=== PATIENT | female | born 1980 | race Caucasian/White ===

== ENCOUNTER 2017-08-05 20:43 | Outpatient (CLI) | payer OTHER | END 2017-08-05 20:44 | disposition critical access hospital (66) | LOC: EMS 20:43 | PROVIDERS: ATTEND Surgery | DX: S99.911A Unspecified injury of right ankle, initial encounter (principal); X58.XXXA Exposure to other specified factors, initial encounter; Y93.51 Activity, roller skating (inline) and skateboarding; Y92.414 Local residential or business street as the place of occurrence of the external cause | CPT/HCPCS: A0425; A0427 ==

== ENCOUNTER 2017-08-05 21:03 | Emergency (ER) | payer OTHER ==
--- NOTE | 2017-08-05 21:04 | ED Physician Documentation ---
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 No: Weakness, Numbness Contributing factors: No: Anticoagulated, Prior ortho surgery, Prosthetic joint Similar symptoms before: Has not had sx before Recently seen: Not recently seen - Additional information Additional information: while skateboarding tonight, patient fell and sustained isolated right ankle injury. Denies any other injury. Denies LOC, denies head injury. BIBA, given 100 micrograms fentanyl en route Review of Systems Cardiac: reports: Reviewed and negative Respiratory: reports: Reviewed and negative GI: reports: Reviewed and negative : denies: Now EGA Skin: reports: Laceration (s) (right ankle) Musculoskeletal: reports: Joint pain (right ankle), Joint swelling (right ankle) . denies: Neck pain, Back pain Neurologic: denies: Focal weakness, Numbness, Altered mental status, Headache, Head injury, LOC PD PAST MEDICAL HISTORY - Past Medical History Past Medical History: No - Past Surgical History Past Surgical History: No - Allergies Allergies/Adverse Reactions: Allergies Allergy/AdvReac Type Severity Reaction Status Date / Time No Known Drug Allergies Allergy Verified 08/05/17 21:16 - Living Situation Living Arrangement: reports: At home - Social History Does the pt smoke?: No PD ED PE NORMAL - Vitals Vital signs reviewed: Yes - General General: Alert and oriented X 3, No acute distress (mostly NAD with episodic obvious painful distress), Well developed/nourished - HEENT HEENT: Atraumatic, PERRL, EOMI - Neck Neck: No bony TTP - Cardiac Cardiac: RRR, No murmur - Respiratory Respiratory: No respiratory distress, Clear bilaterally - Abdomen Abdomen: Soft, Non tender - Derm Derm: Normal color, Warm and dry - Neuro Neuro: Alert and oriented X 3, 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, No sensory deficit Eye Opening: Spontaneous Motor: Obeys Commands Verbal: Oriented GCS Score: 15 PD ED PE EXPANDED - Extremities Extremities: Deformity, Tenderness, Limited ROM, Swelling, Right ankle, Pedal Pulses Present (strong right dorsalis pedis pulse with brisk capillary refill and LTS intact in toes), Other (2 cm crescentic laceration to lateral aspect of right ankle with active bleeding (not pulsatile) and fat extrusion) Results - Vitals Vitals: Vital Signs - 24 hr 08/05/17 08/05/17 08/05/17 21:12 22:27 23:52 Temperature 36.3 C L Heart Rate 74 93 99 Respiratory 18 16 17 Rate Blood Pressure 128/82 H 128/78 O2 Saturation 99 99 96 08/06/17 08/06/17 08/06/17 00:20 01:41 01:57 Temperature 37 C 36.8 C Heart Rate 91 91 97 Respiratory 16 16 16 Rate Blood Pressure 122/83 H 136/79 H 125/75 O2 Saturation 99 95 98 Oxygen O2 Source Room air - Labs Labs: Laboratory Tests 08/05/17 08/05/17 23:35 23:35 WBC 8.6 RBC 4.45 Hgb 13.4 Hct 39.2 MCV 88.1 MCH 30.0 MCHC 34.1 RDW 12.6 Plt Count 204 MPV 9.0 Neut # 6.0 Lymph # 2.1 Morgan # 0.4 Eos # 0.0 Baso # 0.1 Absolute Nucleated RBC 0.00 Nucleated RBC % 0.0 Sodium 140 Potassium 3.5 Chloride 106 Carbon Dioxide 25 Anion Gap 9.0 BUN 6 Creatinine 0.6 Estimated GFR (MDRD) 113 Glucose 91 Calcium 9.2 - Rads (name of study) right ankle xrays Radiology: Prelim report reviewed, See rad report PD MEDICAL DECISION MAKING - ED course Complexity details: reviewed results, re-evaluated patient, considered differential, d/w patient ED course: Dr. Romero (on-call orthopedic surgery) consulted; he then came to ED and evaluated patient, reviewed xrays. His recommendation is transfer to [facility] [place] due to the complexity of the injury and anticipated repair. I then d/w Dr. Godfrey (ED MD at [facility] [place]), accepts transfer, recommends IV ceftriaxone (which I then ordered and was given in ED). Of note, patient required multiple dressing changes during ED stay due to bleeding, and she also required repeated doses of narcotic pain medication due to recurrent pain. Departure - Departure Disposition: 02 Transfer Acute Care Hosp Clinical Impression: Open fracture of right ankle Qualifiers: Encounter type: initial encounter Open fracture type: open type I or II Qualified Code(s): S82.891B - Other fracture of right lower leg, initial encounter for open fracture type I or II Condition: Good Discharge Date/Time: 08/06/17 02:00
[2017-08-05] MEDS ORDERED: fentaNYL 100 MCG/2 ML VIAL IVP STA (21:14)
--- NOTE | 2017-08-05 21:50 | XRAY Report ---
EXAM: RIGHT ANKLE RADIOGRAPHY EXAM DATE: 08/05/2017 09:22 PM. CLINICAL HISTORY: Skateboard crash. Fall. Injury. Pain. COMPARISON: None. TECHNIQUE: 3 views. FINDINGS: Bones: Displaced transverse fracture of the lateral malleolus, sagittal fracture of the medial malleo иван, and coronal fractures through the talus. Joints: The tibia and fibula are shifted slightly lateral in relation to the talus. Soft Tissues: Associated soft tissue swelling. IMPRESSION: Fractures of the medial and lateral malleoli and talus, with shift of the tibia and fibul a laterally in relation to the talus. [facility] Referring Provider Line: [phone] SITE ID: [id number]
[2017-08-05] MEDS ORDERED: HYDROmorphone 2 MG/ML VIAL IVP STA ×2 (22:08→23:39)
[2017-08-05 23:43] LABS: BASOPHILS # (AUTO) 0.1 10^3/uL (0.0-0.1); BASOPHILS % (AUTO) 0.8 %; EOSINOPHILS % (AUTO) 0.4 %; HGB - HEMOGLOBIN 13.4 g/dL (12.0-16.0); LYMPHOCYTES # (AUTO) 2.1 10^3/uL (1.5-3.5); LYMPHOCYTES % (AUTO) 24.4 %; MEAN CORPUSCULAR HGB CONC 34.1 g/dL (32.0-36.0); MEAN CORPUSCULAR VOLUME 88.1 fL (81.0-99.0); MONOCYTES # (AUTO) 0.4 10^3/uL (0.0-1.0); MONOCYTES % (AUTO) 4.6 %; NEUTROPHILS % (AUTO) 69.8 %; PLT - PLATELET COUNT 204 10^3/uL (130-450); RED BLOOD COUNT 4.45 10^6/uL (4.20-5.40); RED CELL DISTRIBUTION WIDTH 12.6 % (12.0-15.0); WHITE BLOOD COUNT 8.6 x10^3/uL (4.8-10.8)
[2017-08-05 23:53] LABS: CALCIUM 9.2 mg/dL (8.5-10.3); CREATININE 0.6 mg/dL (0.4-1.0)
[2017-08-06] MEDS ORDERED: HYDROmorphone 2 MG/ML VIAL IVP STA ×2 (00:45→01:48)
--- NOTE | 2017-08-06 00:49 | PROVIDER PROGRESS NOTE ---
Subjective - Prog Note Date Prog Note Date: 08/06/17 Prog Note Time: 00:43 - Subjective Pt reports feeling: Worse (Patient STHH a fall off her long board this evening, sustaining an open right ankle and talus fractures. No LOC or other injuries. No prior ankle fracture) Objective - Vital Signs/Intake & Output Vital Signs: Vital Signs x48h Temp Pulse Resp BP Pulse Ox 08/06/17 00:20 91 16 122/83 H 99 08/05/17 23:52 99 17 128/78 96 08/05/17 22:27 93 16 99 08/05/17 21:12 36.3 C L 74 18 128/82 H 99 - Lab Results Fish Bones: 08/05/17 23:35 08/05/17 23:35 Other Labs: Lab Results x24hrs 08/05/17 08/05/17 Range/Units 23:35 23:35 WBC 8.6 (4.8-10.8) x10^3/uL RBC 4.45 (4.20-5.40) 10^6/uL Hgb 13.4 (12.0-16.0) g/dL Hct 39.2 (37.0-47.0) % MCV 88.1 (81.0-99.0) fL MCH 30.0 (27.0-31.0) pg MCHC 34.1 (32.0-36.0) g/dL RDW 12.6 (12.0-15.0) % Plt Count 204 (130-450) 10^3/uL MPV 9.0 (7.9-10.8) fL Neut # 6.0 (1.5-6.6) 10^3/uL Lymph # 2.1 (1.5-3.5) 10^3/uL [place] # 0.4 (0.0-1.0) 10^3/uL Eos # 0.0 (0.0-0.7) 10^3/uL Baso # 0.1 (0.0-0.1) 10^3/uL Absolute Nucleated RBC 0.00 x10^3/uL Nucleated RBC % 0.0 /100WBC Sodium 140 (135-145) mmol/L Potassium 3.5 (3.5-5.0) mmol/L Chloride 106 (101-111) mmol/L Carbon Dioxide 25 (21-32) mmol/L Anion Gap 9.0 (6-13) BUN 6 (6-20) mg/dL Creatinine 0.6 (0.4-1.0) mg/dL Estimated GFR (MDRD) 113 (>89) Glucose 91 (70-100) mg/dL Calcium 9.2 (8.5-10.3) mg/dL - Diagnostic Imaging Diagnostic Imaging Comments: XR show a displaced right bimalleolar ankle fracture along with minimally displaced coronal plane talar body fracture - Other Results/Comments Other Results/Comments: EXAM: Right ankle: one cm wound over anterolateral ankle. Mild gross deformity of ankle. Moves toes ok. Sensation intact. Good cap filling Assessment/Plan - Problem List (1) Open fracture of right ankle Impression: Open fracture with some displacement and with assosciated talar body fracture PLAN: After discussion of treatment options, she is in favor of ORIF of fractures. 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 After further discussion of options, she wishes to be transferred to [facility] for her fracture treatment in view of the increased complxity of the fracture due to the talar body fracture component. If [facility] can accept in transfer, will apply betadine dressing to wound, give a dose of antibiotics, splint ankle, and transport to [facility] for definitive treatment of her open fractures. Qualifiers: Encounter type: initial encounter Open fracture type: open type I or II Qualified Code(s): S82.891B - Other fracture of right lower leg, initial encounter for open fracture type I or II
[2017-08-06] MEDS ORDERED: cefTRIAXone 1 GM in SODIUM CHLORIDE 0.9% MINIBAG 100 ML IV STA (01:09)
[2017-08-06] MEDS ORDERED: SODIUM CHLORIDE 0.9% 1,000 ML IV STA (01:21)
[2017-08-06] MEDS ORDERED: diphenhydrAMINE INJ 50 MG/ML VIAL IVP STA (01:48)
[2017-08-06] MEDS ORDERED: ONDANSETRON 4 MG/2 ML VIAL IVP STA (01:48)
[2017-08-06 01:57] VITALS: BP 125/75
== END 2017-08-06 02:00 | disposition short-term general hospital (02) ==
LOC: EDUNIT# → ED 21:03
DX: S82.891B Other fracture of right lower leg, initial encounter for open fracture type I or II (principal); V00.131A Fall from skateboard, initial encounter; Y93.51 Activity, roller skating (inline) and skateboarding
CPT/HCPCS: 36415; 73610; 80048; 85025; 96365; 96375; 96376; 99284; J1170; J1200

== ENCOUNTER 2017-08-06 02:11 | Outpatient (CLI) | payer OTHER | END 2017-08-06 02:12 | disposition short-term general hospital (02) | LOC: EMS 02:11 | PROVIDERS: ATTEND Surgery | DX: S82.841B Displaced bimalleolar fracture of right lower leg, initial encounter for open fracture type I or II (principal); S92.101B Unspecified fracture of right talus, initial encounter for open fracture; W19.XXXA Unspecified fall, initial encounter | CPT/HCPCS: A0425; A0426 ==